=== PATIENT | female | born 1945 | race Two or more races ===

== ENCOUNTER 2022-07-26 12:45 | Emergency (ER) | payer MEDICARE, OTHER ==
[~2022-07-26] VITALS: Ht 165.1 cm; Wt 65.8 kg
--- NOTE | 2022-07-26 13:06 | NUR ---
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 patient was refered here for social security specialist. 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 katerina mcdonnell.
--- NOTE | 2022-07-26 13:18 | NUR ---
dr haile at bedside for eval.
[2022-07-26] MEDS ORDERED: LOSA50TA39 PO (13:25)
[2022-07-26] MEDS ORDERED: NIFE-35 PO (13:25)
[2022-07-26] MEDS ORDERED: CARB1TAB24 PO (13:25)
[2022-07-26] MEDS ORDERED: METF-881 PO (13:25)
[2022-07-26] MEDS ORDERED: CLONAZEPAM PO (13:25)
--- NOTE | 2022-07-26 13:47 | NUR ---
bed laborer at bedside for blood draw. pt tried but unable to provide urine sample at this time.
[2022-07-26 13:58] LABS: BASOPHILS % (AUTO) 0.3 % (0.0-2.0); EOSINOPHILS % (AUTO) 0.4 % (0.0-6.0); HEMATOCRIT 46 % (33-45); HEMOGLOBIN 14.7 g/dL (11.5-14.8); LYMPHOCYTES # (AUTO) 1.5 K/uL (0.8-4.8); LYMPHOCYTES % (AUTO) 20.7 % (20.0-44.0); MEAN CORPUSCULAR HGB CONC 32 g/dl (31.0-36.0); MEAN CORPUSCULAR VOLUME 89 fL (82-100); MONOCYTES # (AUTO) 0.5 K/uL (0.1-1.30); MONOCYTES % (AUTO) 6.7 % (2.0-12.0); NEUTROPHILS # (AUTO) 5.2 K/uL (1.8-8.9); NEUTROPHILS % (AUTO) 71.9 % (43.0-81.0); PLATELET COUNT (AUTO) 188 K/uL (150-450); WHITE BLOOD COUNT (AUTO) 7.3 K/uL (4.3-11.0)
--- NOTE | 2022-07-26 14:08 | NUR ---
pt swabbed for covid. sent to lab.
[2022-07-26 14:35] LABS: ALCOHOL, BLOOD < 3 mg/dL (0-0)
[2022-07-26 14:38] LABS: ALANINE AMINOTRANSFERASE 9 U/L (12-78); ALBUMIN 3.4 g/dL (3.4-5.0); ALKALINE PHOSPHATASE 73 U/L (46-116); ASPARTATE AMINOTRANSFERASE 19 U/L (15-37); BILIRUBIN,DIRECT 0.2 mg/dL (0.0-0.2); BILIRUBIN,TOTAL 0.9 mg/dL (0.2-1.0); CALCIUM, SERUM 9.3 mg/dL (8.5-10.1); CARBON DIOXIDE 31 mmol/L (21-32); CHLORIDE 105 mmol/L (98-107); GLUCOSE 109 mg/dL (74-106); POTASSIUM 3.9 mmol/L (3.5-5.1); SODIUM SERUM 139 mmol/L (136-145); TOTAL PROTEIN, SERUM 6.8 g/dL (6.4-8.2); UREA NITROGEN, BLOOD 15 mg/dL (7-18)
[2022-07-26 14:40] LABS: ACETAMINOPHEN 0 ug/ml (10-30)
[2022-07-26 14:46] LABS: THYROID STIMULATING HORMONE 1.227 uIU/mL (0.358-3.74)
--- NOTE | 2022-07-26 14:56 | NUR ---
called mona regarding pt status and was notified that she will be evaluating the pt with at [facility] 1600
--- NOTE | 2022-07-26 15:55 | NUR ---
CALLED [facility] AND SET UP BLS TRANPORT TO [facility] ETA [id number] AWAITING FOR ROOM NUMBER
[2022-07-26] MEDS ORDERED: ACETAMINOPHEN 325 MG TABLET PO PRN (16:30)
[2022-07-26] MEDS ORDERED: MAG HYDROX/AL HYDROX/SIMETH 30 ML UDC PO PRN (16:30)
[2022-07-26] MEDS ORDERED: Z GUARD REMEDY 4 OZ OINT TP PRN (16:30)
[2022-07-26] MEDS ORDERED: INSULIN REGULAR, HUMAN 100 UNIT/ML 3 ML VIAL SQ PRN (16:30)
[2022-07-26] MEDS ORDERED: *INSULIN REGULAR(HUMULIN R)HUM 100 UNIT/ML VIAL SQ PRN (16:30)
[2022-07-26] MEDS ORDERED: MAGNESIUM HYDROXIDE 30 ML UDC PO PRN (16:30)
[2022-07-26] MEDS ORDERED: DEXTROSE 50%-WATER 50 ML DISP.SYRIN IV PRN (16:30)
[2022-07-26] MEDS ORDERED: ONDANSETRON HCL/PF 4 MG/2 ML VIAL IVP PRN (16:30)
[2022-07-26] MEDS ORDERED: NIFEdipine (10MG) 10 MG CAPSULE PO ONE ×2 (16:39→17:00)
[2022-07-26] MEDS ORDERED: LOSARTAN POTASSIUM 50 MG TABLET ONE (16:39)
[2022-07-26] MEDS ORDERED: LOSARTAN POTASSIUM 25 MG TABLET PO ONE (17:00)
[2022-07-26] MEDS ORDERED: CARBIDOPA/LEVODOPA 25/250 MG 1 UDTAB PO SCH (17:00)
[2022-07-26 17:07] LABS: BILIRUBIN,URINE NEGATIVE (NEGATIVE); COLOR,URINE YELLOW (YELLOW); LEUKOCYTE ESTERASE ,URINE LARGE (NEGATIVE); NITRITE, URINE POSITIVE (NEGATIVE); PROTEIN,URINE NEGATIVE (NEGATIVE); UGLUCOSE NEGATIVE (NEGATIVE); UROBILINOGEN,URINE 0.2 EU/dL (0.2)
[2022-07-26 17:16] LABS: BACTERIA,URINE Many /HPF (None Seen); SQUAMOUS EPITHELIAL CELL,UR Moderate /HPF (None Seen); WBC,URINE TOO NUMEROUS TO COUN /HPF (0-3)
[2022-07-26 17:21] VITALS: BP 123/72
--- NOTE | 2022-07-26 17:24 | NUR ---
picked up by private ambulance going to [facility] in no distress daughter Rylie at bedside.
[2022-07-26] MEDS ORDERED: BLOOD SUGAR DIAGNOSTIC 1 EACH STRIP VI SCH (17:30)
[2022-07-26] MEDS ORDERED: NIFEdipine XL (30MG) 30 MG TAB PO SCH (18:00)
[2022-07-27] MEDS ORDERED: METFORMIN XR 500 MG TAB.SR.24H PO SCH (09:00)
[2022-07-27] MEDS ORDERED: LOSARTAN POTASSIUM 50 MG TABLET PO SCH (09:00)
== END 2022-07-26 17:24 ==
LOC: ER 12:51
DX: G20 Parkinson's disease (principal); F02.82 Dementia in other diseases classified elsewhere, unspecified severity, with psychotic disturbance; E11.9 Type 2 diabetes mellitus without complications; I10 Essential (primary) hypertension; Z79.84 Long term (current) use of oral hypoglycemic drugs; Z79.899 Other long term (current) drug therapy; Z20.822 Contact with and (suspected) exposure to COVID-19
CPT/HCPCS: 36415; 70450-TC; 71045-TC; 80048-TC; 80076-TC; 81001; 84443-TC; 84484-TC; 85025-TC; 87081-TC; 87086-TC; 87186-TC; C9803; G0480